=== PATIENT | female | born 1985 | race Caucasian/White ===

== ENCOUNTER 2018-10-30 14:49 | Observation (INO) | payer MEDICAID ==
[2018-10-30] MEDS ORDERED: Calcium Carbonate 500 MG Tab.Chew PO PRN (20:45)
[2018-10-30] MEDS ORDERED: Acetaminophen 325 MG Tab PO PRN (21:27)
[2018-10-30] MEDS ORDERED: Ondansetron 4 MG/2 ML SDV IV PRN (21:27)
[2018-10-30] MEDS ORDERED: Sodium Chloride 0.9% 10 ML Syringe FLUSH PRN (21:27)
[2018-10-30] MEDS ORDERED: Lactated Ringers 1,000 ML IV ONE (21:27)
[2018-10-30] MEDS ORDERED: Zolpidem 5 MG Tab PO ONE (21:40)
--- NOTE | 2018-10-30 21:46 | PCM.LDHP ---
L&D History of Present Illness - General Date of Service: 10/30/18 Admit Problem/Dx: Admission Diagnosis/Problem Admission Diagnosis/Problem Source of Information: Patient History Limitations: Reports: No Limitations - History of Present Illness Introduction:: 10/30/18 33 yo at 38.3 weeks comes in today for her routine OB check, BPP, and NST. BPP 8/8, NST reactive. She stareted [place] this afternoon just prior to her check. Pt lives quite a distance and was feeling like she may be in early labor. Pt was checked intitially and found to be 3/60/-2 at 1530. She then walked and did make slight change with some bloody show and was 3.5/60/-2 at her next check. Pt continued to walk and sit on the ball and did again progress at 1830 to 3-4/70/-1 at 1830 with bloody show. Contractions then spaced out some this evening and her cervix has been unchanged. Due to her distance and history of shorter labors we will keep her overnight to monitor for labor. If no dilation change by am she will be discharged home. Membranes remain intact, good movement. Timing/Duration: Reports: minutes: (5-6) Severity: Mild Improves with: Reports: None Worsens with: Reports: None Associated Symptoms: Reports: vaginal discharge (scant bloody show) - Related Data Allergies/Adverse Reactions: Allergies Allergy/AdvReac Type Severity Reaction Status Date / Time No Known Allergies Allergy Verified 10/30/18 17:32 Home Medications: Home Meds Vit 90/Iron Fum/Folic [ Formula] 1 each PO DAILY 07/12/13 [ History] Past Medical History HEENT History: Reports: Impaired Vision [employer] History: Reports: , Spontaneous : 5 Para: 3 LMP (Approximate): Endocrine/Metabolic History: Reports: Diabetes, Gestational - Infectious Disease History Infectious Disease History: Reports: Chicken Pox - Past Surgical History Cardiovascular Surgical History: Reports: None Social & Family History - Family History Family Medical History: Unobtainable HEENT: Reports: Cataract, Glaucoma Other HEENT Family History: grandmother Cardiac: Reports: None OBGYN: Reports: , Recurrent Spontaneous , Other (See Below) Other OBGYN Family History: sister with 2 miscarriages. mother with a stillborn and one that passed at 2 weeks. - Tobacco Use Smoking Status *Q: Never Smoker Second Hand Smoke Exposure: No - Caffeine Use Caffeine Use: Reports: Coffee Other Caffeine Use: occassional - Recreational Drug Use Recreational Drug Use: No H&P Review of Systems - Review of Systems: Review Of Systems: See Below General: Reports: No Symptoms HEENT: Reports: No Symptoms Pulmonary: Reports: No Symptoms Cardiovascular: Reports: No Symptoms Gastrointestinal: Reports: No Symptoms Genitourinary: Reports: No Symptoms Musculoskeletal: Reports: No Symptoms Skin: Reports: No Symptoms Psychiatric: Reports: No Symptoms Neurological: Reports: No Symptoms Hematologic/Lymphatic: Reports: No Symptoms Immunologic: Reports: No Symptoms L&D Exam - Exam Exam: See Below - Vital Signs Vital Signs: Last Vital Signs Temp 36.1 C 10/30/18 20:23 Pulse 82 10/30/18 20:23 Resp 16 10/30/18 20:23 BP 132/86 10/30/18 20:23 Pulse Ox 95 10/30/18 20:23 Weight: 86.183 kg - OB Specific Contraction Duration (sec): 40-70 Contraction Frequency (min): 1-3 Contraction Intensity: Mild to Moderate Movement: Active Heart Tones: Present Heart Tones per Min: 140 Heart Rate (FHR) Variability: Moderate (6-25 bmp) Presentation: Vertex - Díaz Score Díaz Score Cervix Position: Midposition Díaz Score Consistency: Soft Díaz Score Effacement: 51-70% Díaz Score Dilation: 3-4 cm Díaz Score 's Station: -1 ,0 Díaz Score Total: 9 - Exam General: Alert, Oriented HEENT: PERRLA, Mucosa Moist & [place], Normal Nasal Septum, Pupils Equal, Pupils Reactive Neck: Supple, Trachea Midline Lungs: Clear to Auscultation, Normal Respiratory Effort Cardiovascular: Regular Rate, Regular Rhythm GI/Abdominal Exam: Normal Bowel Sounds, Soft, No Distention Rectal Exam: Normal Exam Genitourinary: Normal external exam, Normal bimanual exam Back Exam: Normal Inspection, Full Range of Motion Extremities: Normal Inspection, Normal Range of Motion, Non-Tender, No Pedal Edema, Normal Capillary Refill Skin: Warm, Dry, Intact Neurological: Cranial Nerves Intact, Reflexes Equal Bilateral Psychiatric: Alert, Normal Affect, Normal Mood - Patient Data Lab Results Last 24 hrs: Laboratory Results - last 24 hr 10/30/18 10/30/18 10/30/18 Range/Units 17:24 17:30 17:34 WBC 10.9 (4.5-11.0) K/uL RBC 4.18 (3.30-5.50) M/uL Hgb 12.1 (12.0-15.0) g/dL Hct 36.2 (36.0-48.0) % MCV 87 (80-98) fL MCH 29 (27-31) pg MCHC 33 (32-36) % Plt Count 255 (150-400) K/uL Neut % (Auto) 68 H (36-66) % Lymph % (Auto) 18 L (24-44) % [place] % (Auto) 11 H (2-6) % Eos % (Auto) 3 (2-4) % Baso % (Auto) 0 (0-1) % Urine Color Yellow (YELLOW) Urine Appearance Clear (CLEAR) Urine pH 5.5 (5.0-8.0) Ur Specific [place] 1.015 (1.008-1.030) Urine Protein Negative (NEGATIVE) mg/dL Urine Glucose (UA) Normal (NEGATIVE) mg/dL Urine Ketones Negative (NEGATIVE) mg/dL Urine Occult Blood Trace (NEGATIVE) Urine Nitrite Negative (NEGATIVE) Urine Bilirubin Negative (NEGATIVE) Urine Urobilinogen Normal (0.2-1.0) EU/dL Ur Leukocyte Esterase Negative (NEGATIVE) Urine RBC 0-5 (0-5) Urine WBC 0-5 (0-5) Ur Epithelial Cells Few Amorphous Sediment Not seen Urine Bacteria Few Urine Mucus Not seen Urine Opiates Screen Negative (NEGATIVE) Ur Oxycodone Screen Negative (NEGATIVE) Urine Methadone Screen Negative (NEGATIVE) Ur Propoxyphene Screen Negative (NEGATIVE) Ur Barbiturates Screen Negative (NEGATIVE) Ur Tricyclics Screen Negative (NEGATIVE) Ur Phencyclidine Scrn Negative (NEGATIVE) Ur Amphetamine Screen Negative (NEGATIVE) U Methamphetamines Scrn Negative (NEGATIVE) Urine MDMA Screen Negative (NEGATIVE) U Benzodiazepines Scrn Negative (NEGATIVE) U Cocaine Metab Screen Negative (NEGATIVE) U Marijuana (THC) Screen Negative (NEGATIVE) Result Diagrams: 10/30/18 17:30 - Problem List (1) 38 weeks gestation of SNOMED Code(s): 60654292 ICD Code: Z3A.38 - 38 WEEKS GESTATION OF Status: Acute Current Visit: Yes (2) GDM (gestational diabetes mellitus) SNOMED Code(s): 77941658 ICD Code: O24.419 - GESTATIONAL DIABETES MELLITUS IN , UNSP CONTROL Status: Acute Current Visit: No Qualifiers: Gestational diabetes mellitus control: diet-controlled Trimester: third trimester Qualified Code(s): O24.410 - Gestational diabetes mellitus in , diet controlled Problem List Initiated/Reviewed/Updated: Yes Orders Last 24hrs: Active Orders 24 hr Category Date Time Status OB Check [OM.PC] Click to Edit Care 10/30/18 17:24 Ordered Calcium Carbonate [Tums] Med 10/30/18 20:45 Active 1,000 mg PO Q2H PRN Medication Orders Calcium Carbonate/Glycine (Tums) 1,000 mg PO Q2H PRN PRN Reason: Indigestion Assessment/Plan Comment:: 10/30/18 33 yo at 38.3 weeks here with latent labor symptoms Membranes intact FHT's category 1 Plan: LR 1 L fluid bolus Intermittent monitoring only overnight Ambien for sleep Reassess labor status in am or sooner if needed
[2018-10-30 23:21] VITALS: BP 105/64
--- NOTE | 2018-10-31 07:43 | PCM.PNLD ---
Labor Progress Note - VS & Meds Vital Signs: Last Vital Signs Temp 36.1 C 10/30/18 20:23 Pulse 78 10/30/18 23:17 Resp 16 10/30/18 23:17 BP 105/64 10/30/18 23:17 Pulse Ox 98 10/30/18 23:17 Active Medications: Current Medications Acetaminophen (Tylenol) 650 mg PO Q4H PRN PRN Reason: Pain (Mild 1-3) and fever Calcium Carbonate/Glycine (Tums) 1,000 mg PO Q2H PRN PRN Reason: Indigestion Last Admin: 10/30/18 23:08 Dose: 1,000 mg Ondansetron HCl (Zofran) 4 mg IV Q4H PRN PRN Reason: Nausea/Vomiting Sodium Chloride (Saline Flush) 10 ml FLUSH ASDIRECTED PRN PRN Reason: Keep Vein Open Discontinued Medications Lactated Ringer's (Ringers, Lactated) 1,000 mls @ 999 mls/hr IV .BOLUS ONE Stop: 10/30/18 22:27 Last Admin: 10/30/18 23:08 Dose: 999 mls/hr Zolpidem Tartrate (Ambien) 10 mg PO ONETIME ONE Stop: 10/30/18 21:41 Last Admin: 10/30/18 23:09 Dose: 10 mg - Uterine Contractions Uterine Monitoring Mode: External [place] Contraction Frequency (min): 1-3 Contraction Duration (sec): 40-70 Contraction Intensity: Mild to Moderate Uterine Resting Tone: Soft - Monitoring Heart Rate (FHR) Variability: Moderate (6-25 bmp) - Vaginal Exam Vaginal Exam Comment: No change - Labor Progress (Free Text) Labor Progress: 10/31/2018 Patient has rested most of night with irregular contractions FHTs category one No change in SVE Decision made to send her home Education on labor signs, when to come back to hospital, due to distance will call ahead when on their way
== END 2018-10-31 09:00 | disposition home or self-care (01) ==
LOC: JP.OBCHECK 14:49 → JP.OB 14:50 → UNDOADMOB 19:40 → INTOOBSV 21:27 → OBSVTOIN 21:27 → JP.OBCHECK 10-31 08:30 → UNDODISIN 10-31 08:30
PROVIDERS: ADMIT Advanced Practice Midwife; ATTEND Advanced Practice Midwife
DX: O60.03 Preterm labor without delivery, third trimester (principal); O24.410 Gestational diabetes mellitus in pregnancy, diet controlled; Z3A.38 38 weeks gestation of pregnancy; Z87.59 Personal history of other complications of pregnancy, childbirth and the puerperium
CPT/HCPCS: 36415; 80305; 81001; 85025; 99211; A9270; J7120

== ENCOUNTER 2018-11-03 11:21 | Inpatient (IN) | payer MEDICAID ==
[2018-11-03] MEDS ORDERED: Sodium Chloride 0.9% 10 ML Syringe FLUSH PRN (11:50)
[2018-11-03] MEDS ORDERED: Ondansetron 4 MG/2 ML SDV IV PRN (11:50)
[2018-11-03] MEDS ORDERED: Calcium Carbonate 500 MG Tab.Chew PO PRN (11:50)
[2018-11-03] MEDS ORDERED: Acetaminophen 325 MG Tab PO PRN (11:50)
--- NOTE | 2018-11-03 12:02 | PCM.LDHP ---
L&D History of Present Illness - General Date of Service: 11/03/18 Admit Problem/Dx: Patient Status Order with Admit Dx/Problem 11/03/18 11:50 Patient Status [ADT] Routine Admission Diagnosis/Problem Admission Diagnosis/Problem Source of Information: Patient History Limitations: Reports: No Limitations - History of Present Illness Introduction:: 33 yo is here with contractions that began at about 4:40 am. She has been [place] on and off since 10/30. Her SVE is 4/60/-1, membranes intact. She is 39 0/7 weeks today and has a history of GDM. She also has a hx of PPH and retained placenta that required a D & C which we will have [address] for. Contractions irregular at this time but her cervix has changed. She desires augmentation today if no cervical change in the next 1-2 hours. Location, : Reports: Abdomen Severity: Moderate Improves with: Reports: None Worsens with: Reports: None Associated Symptoms: Denies: vaginal bleeding, vaginal fluid - Related Data Allergies/Adverse Reactions: Allergies Allergy/AdvReac Type Severity Reaction Status Date / Time No Known Allergies Allergy Verified 10/30/18 17:32 Home Medications: Home Meds Vit 90/Iron Fum/Folic [ Formula] 1 each PO DAILY 07/12/13 [ History] Past Medical History HEENT History: Reports: Impaired Vision [employer] History: Reports: , Spontaneous , Other (See Below) ( PPH and retained placenta) Endocrine/Metabolic History: Reports: Diabetes, Gestational - Infectious Disease History Infectious Disease History: Reports: Chicken Pox - Past Surgical History Cardiovascular Surgical History: Reports: None Social & Family History - Family History Family Medical History: Unobtainable HEENT: Reports: Cataract, Glaucoma Other HEENT Family History: grandmother Cardiac: Reports: None OBGYN: Reports: , Recurrent Spontaneous , Other (See Below) Other OBGYN Family History: sister with 2 miscarriages. mother with a stillborn and one that passed at 2 weeks. - Caffeine Use Caffeine Use: Reports: Coffee Other Caffeine Use: occassional H&P Review of Systems - Review of Systems: Review Of Systems: See Below General: Reports: No Symptoms HEENT: Reports: No Symptoms Pulmonary: Reports: No Symptoms Cardiovascular: Reports: No Symptoms Gastrointestinal: Reports: No Symptoms Genitourinary: Reports: No Symptoms Musculoskeletal: Reports: No Symptoms Skin: Reports: No Symptoms Psychiatric: Reports: No Symptoms Neurological: Reports: No Symptoms Hematologic/Lymphatic: Reports: No Symptoms Immunologic: Reports: No Symptoms L&D Exam - Exam Exam: See Below - OB Specific Contraction Intensity: Mild to Moderate Movement: Active Heart Tones: Present Heart Rate (FHR) Variability: Moderate (6-25 bmp) Presentation: Vertex Estimated Weight: 8 lb 8 oz - Díaz Score Díaz Score Cervix Position: Midposition Díaz Score Consistency: Soft Díaz Score Effacement: 51-70% Díaz Score Dilation: 3-4 cm Díaz Score 's Station: -1 ,0 Díaz Score Total: 9 - Exam General: Alert, Oriented HEENT: PERRLA, EACs Clear, EOMI, Hearing Intact, Mucosa Moist & [place], Nares Patent, Normal Nasal Septum, Pupils Equal, Pupils Reactive Neck: Supple, Trachea Midline Lungs: Clear to Auscultation, Normal Respiratory Effort Cardiovascular: Regular Rate, Regular Rhythm GI/Abdominal Exam: Normal Bowel Sounds, Soft, Non-Tender, No Organomegaly, No Distention, No Abnormal Bruit, No Mass, Pelvis Stable Rectal Exam: Normal Exam, Normal Rectal Tone Genitourinary: Normal external exam, Normal bimanual exam, Enlarged uterus. No : Vaginal bleeding, Vaginal discharge Back Exam: Normal Inspection, Full Range of Motion Extremities: Normal Inspection, Normal Range of Motion, Non-Tender, No Pedal Edema, Normal Capillary Refill. No: Pedal Edema Skin: Warm, Dry, Intact Neurological: Cranial Nerves Intact, Reflexes Equal Bilateral Psychiatric: Alert, Normal Affect, Normal Mood - Problem List (1) SNOMED Code(s): 84192055 ICD Code: Z34.90 - ENCNTR FOR SUPRVSN OF NORMAL , UNSP, UNSP TRIMESTER Status: Acute Current Visit: Yes Qualifiers: Weeks of gestation: 39 weeks Qualified Code(s): Z3A.39 - 39 weeks gestation of (2) History of hemorrhage SNOMED Code(s): 289560640 ICD Code: Z86.2 - PRSNL HISTORY OF DIS OF THE BLD/BLD-FORM ORG/IMMUN MECHNSM Status: Acute Current Visit: Yes (3) History of shoulder dystocia in prior SNOMED Code(s): 335365528 ICD Code: Z87.59 - PERSONAL HISTORY OF COMP OF PREG, CHLDBRTH AND THE PUERP Status: Acute Current Visit: Yes (4) History of retained placenta SNOMED Code(s): 384540018 ICD Code: Z87.59 - PERSONAL HISTORY OF COMP OF PREG, CHLDBRTH AND THE PUERP Status: Acute Current Visit: Yes (5) GDM (gestational diabetes mellitus) SNOMED Code(s): 82374111 ICD Code: O24.419 - GESTATIONAL DIABETES MELLITUS IN , UNSP CONTROL Status: Acute Current Visit: No Qualifiers: Gestational diabetes mellitus control: diet-controlled Trimester: third trimester Qualified Code(s): O24.410 - Gestational diabetes mellitus in , diet controlled (6) Need for rhogam due to Rh negative mother SNOMED Code(s): 960759178, 652401239 ICD Code: O09.899 - SUPERVISION OF OTHER HIGH RISK PREGNANCIES, UNSP TRIMESTER Status: Acute Current Visit: No Problem List Initiated/Reviewed/Updated: Yes Orders Last 24hrs: Active Orders 24 hr Category Date Time Status Patient Status [ADT] Routine ADT 11/03/18 11:50 Ordered Ambulate [RC] PER UNIT ROUTINE Care 11/03/18 11:50 Ordered Communication Order [RC] ASDIRECTED Care 11/03/18 11:50 Ordered Heart Tones [RC] PER UNIT ROUTINE Care 11/03/18 11:50 Ordered Notify Provider Vital Signs [RC] PRN Care 11/03/18 11:52 Ordered Notify Provider [RC] PRN Care 11/03/18 11:50 Ordered OB Check [OM.PC] Click to Edit Care 11/03/18 11:33 Ordered Up ad [place] [RC] ASDIRECTED Care 11/03/18 11:50 Ordered VTE/DVT Education [RC] Click to Edit Care 11/03/18 11:53 Ordered Vital Signs [RC] PER UNIT ROUTINE Care 11/03/18 11:50 Ordered Regular Diet [DIET] Diet 11/03/18 Breakfast Ordered CBC WITH AUTO DIFF [HEME] Routine Lab 11/03/18 11:50 Ordered DRUG SCREEN, URINE [URCHEM] Routine Lab 11/03/18 11:33 Ordered UA W/MICROSCOPIC [URIN] Routine Lab 11/03/18 11:32 Ordered Acetaminophen [Tylenol] Med 11/03/18 11:50 Ordered 650 mg PO Q4H PRN Calcium Carbonate [Tums] Med 11/03/18 11:50 Ordered 1,000 mg PO Q2HR PRN Ondansetron [Zofran] Med 11/03/18 11:50 Ordered 4 mg IV Q4H PRN Oxytocin/Normal Saline [Pitocin in NS 20 Units/1,000 ML Med 11/03/18 12:00 Ordered ] 20 unit in 1,000 ml IV TITRATE Sodium Chloride 0.9% [Saline Flush] Med 11/03/18 11:50 Ordered 10 ml FLUSH ASDIRECTED PRN DVT/VTE Prophylaxis Reflex [OM.PC] Routine Oth 11/03/18 11:50 Ordered Saline Lock Insert [OM.PC] Routine Oth 11/03/18 11:50 Ordered Resuscitation Status Routine Resus Stat 11/03/18 11:50 Ordered Medication Orders Acetaminophen (Tylenol) 650 mg PO Q4H PRN PRN Reason: Pain (Mild 1-3) and fever Calcium Carbonate/Glycine (Tums) 1,000 mg PO Q2HR PRN PRN Reason: Indigestion Oxytocin/Sodium Chloride (Pitocin In Ns 20 Units/1,000 Ml) 20 unit in 1,000 mls @ 6 mls/hr IV TITRATE ELIZABET; Protocol Ondansetron HCl (Zofran) 4 mg IV Q4H PRN PRN Reason: Nausea/Vomiting Sodium Chloride (Saline Flush) 10 ml FLUSH ASDIRECTED PRN PRN Reason: Keep Vein Open Assessment/Plan Comment:: 11/03/18 Assessment: 33 yo here at 39 0/7 weeks in latent labor Membranes intact History of shoulder dystocia, PPH, and retained placenta Category 1 tracing Educated on monitoring latent labor and possible discharge to home if no change vs augmentation, pt desires augmentation Plan: Augment with Pitocin if no cervical change in 1-2 hours Anticipate Continue to monitor for labor and FHT's Pain management per patient request Light regular diet
[2018-11-03] MEDS: Lactated Ringers 1,000 ML IV SCH ×2 (13:30→16:39)
--- NOTE | 2018-11-03 13:31 | PCM.PNLD ---
Labor Progress Note - VS & Meds Active Medications: Current Medications Acetaminophen (Tylenol) 650 mg PO Q4H PRN PRN Reason: Pain (Mild 1-3) and fever Calcium Carbonate/Glycine (Tums) 1,000 mg PO Q2H PRN PRN Reason: Indigestion Oxytocin/Sodium Chloride (Pitocin In Ns 20 Units/1,000 Ml) 20 unit in 1,000 mls @ 6 mls/hr IV TITRATE ELIZABET; Protocol Oxytocin/Sodium Chloride (Pitocin In Ns 20 Units/1,000 Ml) 20 unit in 1,000 mls @ 6 mls/hr IV TITRATE ELIZABET; Protocol Lactated Ringer's (Ringers, Lactated) 1,000 mls @ 125 mls/hr IV ASDIRECTED ELIZABET Ondansetron HCl (Zofran) 4 mg IV Q4H PRN PRN Reason: Nausea/Vomiting Sodium Chloride (Saline Flush) 10 ml FLUSH ASDIRECTED PRN PRN Reason: Keep Vein Open - Uterine Contractions Contraction Intensity: Mild to Moderate - Monitoring Heart Rate (FHR) Variability: Moderate (6-25 bmp) Accelerations: Present, 15x15 Decelerations: None Strip Review: Category I - Vaginal Exam Dilation (cm): 4 Effacement (Percent): 60 Station: -1 Sterile Vaginal Exam Performed By: Meenakshi Webb - Labor Progress (Free Text) Labor Progress: 11/03/18 Assessment: No cervical change, contractions spaced out, not any stronger Category 1 tracing Membranes intact Plan: Start pitocin per protocol Continuous monitoring with pitocin Discussed AROM after 5-6 cm and head well applied, patient desires this unless she has SROM, risk and benefit discussed including prolapsed cord, infection.
--- NOTE | 2018-11-03 17:32 | CRLUS ---
INDICATION: TACHYCARDIA TECHNIQUE: Ultrasound OB pelvis transabdominal. Real time sánchez scale imaging of the fetus was performed. COMPARISON: None FINDINGS: Sonographic imaging demonstrates a single living intrauterine gestation. Fetus demonstrates a regular cardiac rate of 140-152 bpm. Fetus has a cephalic presentation. The placenta is not demonstrated. Amniotic fluid volume appears normal with single deepest pocket (SDP) of 6 cm. breathing movements, motion, and tone were all observed. IMPRESSION: 1. Single viable intrauterine with a biophysical profile 8 out of a maximum of 8. Dictated by: Maurice Cook MD @ 11/03/2018 17:30:37 (Electronically Signed)
--- NOTE | 2018-11-03 17:40 | PCM.PNLD ---
Labor Progress Note - VS & Meds Vital Signs: Last Vital Signs Temp 36.8 C 11/03/18 15:44 Pulse 97 11/03/18 13:40 Resp 18 11/03/18 13:40 BP 128/67 11/03/18 13:40 Pulse Ox 97 11/03/18 13:40 Active Medications: Current Medications Acetaminophen (Tylenol) 650 mg PO Q4H PRN PRN Reason: Pain (Mild 1-3) and fever Calcium Carbonate/Glycine (Tums) 1,000 mg PO Q2H PRN PRN Reason: Indigestion Oxytocin/Sodium Chloride (Pitocin In Ns 20 Units/1,000 Ml) 20 unit in 1,000 mls @ 6 mls/hr IV TITRATE ELIZABET; Protocol Last Titration: 11/03/18 15:55 Dose: 0 munits/min, 0 mls/hr Oxytocin/Sodium Chloride (Pitocin In Ns 20 Units/1,000 Ml) 20 unit in 1,000 mls @ 6 mls/hr IV TITRATE ELIZABET; Protocol Lactated Ringer's (Ringers, Lactated) 1,000 mls @ 125 mls/hr IV ASDIRECTED ELIZABET Last Admin: 11/03/18 16:39 Dose: 125 mls/hr Ondansetron HCl (Zofran) 4 mg IV Q4H PRN PRN Reason: Nausea/Vomiting Sodium Chloride (Saline Flush) 10 ml FLUSH ASDIRECTED PRN PRN Reason: Keep Vein Open - Uterine Contractions Uterine Monitoring Mode: External [address] Contraction Frequency (min): 3-7 Contraction Duration (sec): 60-70 Contraction Intensity: Moderate Uterine Resting Tone: Soft - Monitoring Heart Rate (FHR) Variability: Moderate (6-25 bmp) Accelerations: Present, 15x15 Decelerations: None Strip Review: Category I - Vaginal Exam Dilation (cm): 6 Effacement (Percent): 80 Station: -2 Sterile Vaginal Exam Performed By: Meenakshi Webb - Labor Progress (Free Text) Labor Progress: 11/03/18 Sudden bradycardia noted around 1540 this afternoon that lasted around 30 min. Pt afebrile, rotated side to side, oxygen applied, fluid bolus given, and pitocin shut off. BPP done to verify HR, score was 8/8. heart rate did come back down to baseline and the decision was made to rupture pt to help labor progress. AROM done with clear fluid. FHT now category 1 again. Contractions spaced out and less strong. Plan: Start pitocin again around 1800 slowly and monitor closely. Anticipate .
[2018-11-03] MEDS ORDERED: Lidocaine 1% 20 ML MDV INJECT ONE (21:34)
[2018-11-03] MEDS ORDERED: Lidocaine 1% 50 ML MDV ONE (21:34)
[2018-11-03] MEDS ORDERED: Methylergonovine 0.2 MG/1 ML Amp ONE (21:36)
[2018-11-03] MEDS ORDERED: Misoprostol 200 MCG Tab ONE (21:36)
[2018-11-03] MEDS ORDERED: Carboprost Tromethamine 250 MCG/1 ML Amp ONE (21:36)
[2018-11-03] MEDS ORDERED: Acetaminophen 325 MG Tab, 50 Tab Bulk Bottle PO PRN (21:55)
[2018-11-03] MEDS ORDERED: Benzocaine 20% Top Spray 56 GM Bottle TOP ONE (21:55)
[2018-11-03] MEDS ORDERED: Ibuprofen 200 MG Tab, 24 Tab Bulk Bottle PO PRN (21:55)
[2018-11-03] MEDS ORDERED: Witch Hazel Medicated Pads 100/Jar TOP ONE (21:55)
[2018-11-03] MEDS ORDERED: Lanolin 100% Cream 40 GM Tube TOP ONE (21:55)
--- NOTE | 2018-11-03 22:20 | PCM.DEL ---
L & D Note - General Info Date of Service: 11/03/18 Mother's Due Date: 11/10/18 - Delivery Note Labor: Spontaneous, Augmented by ARM, Augmented by Oxytocin Delivery Outcome: Livebirth Delivery Method: Spontaneous Vaginal Delivery-Single Infant Delivery Mode: Spontaneous Presentation: Right Occiput Anterior (AMILCAR) Nuchal Cord: None Anesthesia Type: None Anesthetic: Lidocaine (Xylocaine) 1% Plain Local Anesthetic Volume: 5cc Amniotic Fluid Description: Clear Episiotomy Type: None Laceration: 1st Degree, Perineal Suture type: Vicryl Suture size: 3-0 Placenta: Intact, Spontaneous Cord: 3 Vessels Estimated Blood Loss: 350 Resuscitation Needed: No Mather: Bulb Syringe, Stimulated, Warmed Provider: Vidhya Eagle Score 1 min: 7 Score 5 min: 8 Second Stage Interventions: Reports: Second Nurse Assessed Progress of Descent, Second Nurse Reviewed Contraction Pattern, Second Nurse Reviewed Heart Tones, Encouragement Given, Pushing Effectively, Pushing, McRobert's Position, Pushing, Stirrups/Leg Supports Delivery Comments (Free Text/Narrative):: 11/03/18 33 yo delivered a male vaginally in AMILCAR position at 2125 after a spontaneous labor that was augmented with pitocin and AROM. Fluid clear. Infant was placed immediately on mothers chest and was stimulated. Cord clamping delayed and then baby was taken to the warmer at 5 min for brief stimulation and then returned to mother 1 min later. Placenta was delivered intact with a 3 vessel cord spontaneously. Fundus firm with IV pitocin and uterine massage. EBL 350 ml. There was a 1st degree perineal laceration that was repaired with 3-0 vicryl. No cervical or vaginal lacerations. Apgars 7, 8. 9 lb 11 oz, 21 in. - General Info Date of Service: 11/03/18 Functional Status: Reports: Pain Controlled - Review of Systems General: Reports: No Symptoms HEENT: Reports: No Symptoms Pulmonary: Reports: No Symptoms Cardiovascular: Reports: No Symptoms Gastrointestinal: Reports: No Symptoms Genitourinary: Reports: No Symptoms Musculoskeletal: Reports: No Symptoms Skin: Reports: No Symptoms Neurological: Reports: No Symptoms Psychiatric: Reports: No Symptoms - Patient Data Vitals - Most Recent: Last Vital Signs Temp 37.2 C 11/03/18 19:30 Pulse 84 11/03/18 19:30 Resp 16 08/20/19 19:30 BP 140/68 11/03/18 19:30 Pulse Ox 98 11/03/18 19:30 Weight - Most Recent: 86.636 kg Lab Results Last 24 Hours: Laboratory Results - last 24 hr 11/03/18 11/03/18 11/03/18 Range/Units 11:32 11:33 12:01 WBC 9.2 (4.5-11.0) K/uL RBC 4.25 (3.30-5.50) M/uL Hgb 12.3 (12.0-15.0) g/dL Hct 36.7 (36.0-48.0) % MCV 86 (80-98) fL MCH 29 (27-31) pg MCHC 34 (32-36) % Plt Count 254 (150-400) K/uL Neut % (Auto) 70 H (36-66) % Lymph % (Auto) 18 L (24-44) % [place] % (Auto) 10 H (2-6) % Eos % (Auto) 3 (2-4) % Baso % (Auto) 1 (0-1) % Urine Color Yellow (YELLOW) Urine Appearance Clear (CLEAR) Urine pH 6.0 (5.0-8.0) Ur Specific [place] 1.020 (1.008-1.030) Urine Protein Negative (NEGATIVE) mg/dL Urine Glucose (UA) Normal (NEGATIVE) mg/dL Urine Ketones Negative (NEGATIVE) mg/dL Urine Occult Blood Negative (NEGATIVE) Urine Nitrite Negative (NEGATIVE) Urine Bilirubin Negative (NEGATIVE) Urine Urobilinogen Normal (0.2-1.0) EU/dL Ur Leukocyte Esterase Negative (NEGATIVE) Urine RBC Not seen (0-5) Urine WBC 0-5 (0-5) Ur Epithelial Cells Moderate Amorphous Sediment Few Urine Bacteria Few Urine Mucus Not seen Urine Opiates Screen Negative (NEGATIVE) Ur Oxycodone Screen Negative (NEGATIVE) Urine Methadone Screen Negative (NEGATIVE) Ur Propoxyphene Screen Negative (NEGATIVE) Ur Barbiturates Screen Negative (NEGATIVE) Ur Tricyclics Screen Negative (NEGATIVE) Ur Phencyclidine Scrn Negative (NEGATIVE) Ur Amphetamine Screen Negative (NEGATIVE) U Methamphetamines Scrn Negative (NEGATIVE) Urine MDMA Screen Negative (NEGATIVE) U Benzodiazepines Scrn Negative (NEGATIVE) U Cocaine Metab Screen Negative (NEGATIVE) U Marijuana (THC) Screen Negative (NEGATIVE) Med Orders - Current: Current Medications Acetaminophen (Tylenol) 650 mg PO Q4H PRN PRN Reason: Pain (Mild 1-3) and fever Acetaminophen (Tylenol Bulk Bottle) 325 mg PO Q4H PRN PRN Reason: Pain Benzocaine (Bcbw-Z-Brystft 20% [place]) 0 gm TOP Q4H ONE Stop: 11/03/18 21:56 Calcium Carbonate/Glycine (Tums) 1,000 mg PO Q2H PRN PRN Reason: Indigestion Docusate Sodium (Colace) 100 mg PO BID PRN PRN Reason: Constipation Emollient Ointment (Lansinoh Hpa) 1 gm TOP ASDIRECTED ONE Stop: 11/03/18 21:56 Oxytocin/Sodium Chloride (Pitocin In Ns 20 Units/1,000 Ml) 20 unit in 1,000 mls @ 6 mls/hr IV TITRATE ELIZABET; Protocol Last Titration: 11/03/18 20:03 Dose: 4 munits/min, 12 mls/hr Oxytocin/Sodium Chloride (Pitocin In Ns 20 Units/1,000 Ml) 20 unit in 1,000 mls @ 6 mls/hr IV TITRATE ELIZABET; Protocol Lactated Ringer's (Ringers, Lactated) 1,000 mls @ 125 mls/hr IV ASDIRECTED ELIZABET Last Admin: 11/03/18 16:39 Dose: 125 mls/hr Ibuprofen (Motrin Bulk Bottle) 600 mg PO Q6H PRN PRN Reason: Pain Ondansetron HCl (Zofran) 4 mg IV Q4H PRN PRN Reason: Nausea/Vomiting Sodium Chloride (Saline Flush) 10 ml FLUSH ASDIRECTED PRN PRN Reason: Keep Vein Open Witch Ame (Tucks) 1 pad TOP ASDIRECTED ONE Stop: 11/03/18 21:56 Discontinued Medications Carboprost Tromethamine (Hemabate Ds) Confirm Administered Dose 250 mcg .ROUTE .STK-MED ONE Stop: 11/03/18 21:37 Lidocaine HCl (Xylocaine 1%) Confirm Administered Dose 50 ml .ROUTE .STK-MED ONE Stop: 11/03/18 21:35 Methylergonovine Maleate (Methergine) Confirm Administered Dose 0.2 mg .ROUTE .STK-MED ONE Stop: 11/03/18 21:37 Misoprostol (Cytotec) Confirm Administered Dose 800 mcg .ROUTE .STK-MED ONE Stop: 11/03/18 21:37 - Exam General: Alert, Oriented HEENT: Pupils Equal, Pupils Reactive, Mucous Membr. Moist/[place] Neck: Supple Lungs: Clear to Auscultation, Normal Respiratory Effort Cardiovascular: Regular Rate, Regular Rhythm GI/Abdominal Exam: Normal Bowel Sounds, Soft, Non-Tender, No Distention, No Mass (Female) Exam: Normal External Exam, Normal Bimanual Exam, Cervical Dilatation, Enlarged Uterus, Vaginal Bleeding. No: Vaginal Lesions, Vaginal Tears Back Exam: Normal Inspection, Full Range of Motion Extremities: Normal Inspection, Normal Range of Motion, Non-Tender, No Pedal Edema, Normal Capillary Refill Skin: Warm, Dry, Intact Wound/Incisions: Healing Well Neurological: No New Focal Deficit Psy/Mental Status: Alert, Normal Affect, Normal Mood - Problem List & Annotations (1) SNOMED Code(s): 92814821 Code(s): Z34.90 - ENCNTR FOR SUPRVSN OF NORMAL , UNSP, UNSP TRIMESTER Status: Acute Current Visit: Yes Qualifiers: Weeks of gestation: 39 weeks Qualified Code(s): Z3A.39 - 39 weeks gestation of (2) History of hemorrhage SNOMED Code(s): 708114376 Code(s): Z86.2 - PRSNL HISTORY OF DIS OF THE BLD/BLD-FORM ORG/IMMUN MECHNSM Status: Acute Current Visit: Yes (3) History of shoulder dystocia in prior SNOMED Code(s): 487296550 Code(s): Z87.59 - PERSONAL HISTORY OF COMP OF PREG, CHLDBRTH AND THE PUERP Status: Acute Current Visit: Yes (4) History of retained placenta SNOMED Code(s): 840939348 Code(s): Z87.59 - PERSONAL HISTORY OF COMP OF PREG, CHLDBRTH AND THE PUERP Status: Acute Current Visit: Yes (5) GDM (gestational diabetes mellitus) SNOMED Code(s): 41977307 Code(s): O24.419 - GESTATIONAL DIABETES MELLITUS IN , UNSP CONTROL Status: Acute Current Visit: No Qualifiers: Gestational diabetes mellitus control: diet-controlled Trimester: third trimester Qualified Code(s): O24.410 - Gestational diabetes mellitus in , diet controlled (6) Need for rhogam due to Rh negative mother SNOMED Code(s): 183547872, 376668942 Code(s): O09.899 - SUPERVISION OF OTHER HIGH RISK PREGNANCIES, UNSP TRIMESTER Status: Acute Current Visit: No (7) Vaginal delivery SNOMED Code(s): 441189388 Code(s): O80 - ENCOUNTER FOR FULL-TERM UNCOMPLICATED DELIVERY Status: Acute Current Visit: Yes (8) (infant) SNOMED Code(s): 677587012 Code(s): Z78.9 - OTHER SPECIFIED HEALTH STATUS Status: Acute Current Visit: Yes (9) Perineal laceration SNOMED Code(s): 373700974 Code(s): MSI6374 - Status: Acute Current Visit: Yes - Problem List Review Problem List Initiated/Reviewed/Updated: Yes - My Orders Last 24 Hours: My Active Orders 11/03/18 11:33 OB Check [OM.PC] Click to Edit 11/03/18 11:50 Patient Status [ADT] Routine Ambulate [RC] PER UNIT ROUTINE Communication Order [RC] ASDIRECTED Notify Provider [RC] PRN Up ad [place]ala [RC] ASDIRECTED Vital Signs [RC] PER UNIT ROUTINE Acetaminophen [Tylenol] 650 mg PO Q4H PRN Calcium Carbonate [Tums] 1,000 mg PO Q2H PRN Ondansetron [Zofran] 4 mg IV Q4H PRN Sodium Chloride 0.9% [Saline Flush] 10 ml FLUSH ASDIRECTED PRN DVT/VTE Prophylaxis Reflex [OM.PC] Routine Saline Lock Insert [OM.PC] Routine Resuscitation Status Routine 11/03/18 11:52 Notify Provider Vital Signs [RC] PRN 11/03/18 11:53 VTE/DVT Education [RC] Click to Edit 11/03/18 12:00 Oxytocin/Normal Saline [Pitocin in NS 20 Units/1,000 ML] 20 unit in 1,000 ml IV TITRATE 11/03/18 13:30 Lactated Ringers [Ringers, Lactated] 1,000 ml IV ASDIRECTED Oxytocin/Normal Saline [Pitocin in NS 20 Units/1,000 ML] 20 unit in 1,000 ml IV TITRATE 11/03/18 21:55 Acetaminophen [Tylenol Bulk Bottle] 325 mg PO Q4H PRN Benzocaine [Aeul-T-Sotcqhi 20% [place]] See Dose Instructions TOP Q4H ONE Docusate Sodium [Colace] 100 mg PO BID PRN Ibuprofen [Motrin Bulk Bottle] 600 mg PO Q6H PRN Lanolin [Lansinoh HPA] 1 gm TOP ASDIRECTED ONE Witch Ame [Tucks] 1 pad TOP ASDIRECTED ONE Assess Lochia [WOMSER] Per Unit Routine Assess Uterine Involution [WOMSER] Per Unit Routine 11/03/18 21:56 Patient Status [ADT] Routine Vital Signs [RC] PFP Ice Therapy [OM.PC] Per Unit Routine Perineal Care [OM.PC] Per Unit Routine Sitz Bath [OM.PC] Per Unit Routine 11/03/18 21:57 Peripheral IV Discontinue [OM.PC] Routine 11/03/18 Breakfast Regular Diet [DIET] 11/04/18 06:00 CBC WITH AUTO DIFF [HEME] Routine - Assessment Assessment:: 11/03/18 33 yo with of a male Hx GDM First degree laceration with repair mother - Plan Plan:: 11/03/18 Assessment: 33 yo here at 39 0/7 weeks in latent labor Membranes intact History of shoulder dystocia, PPH, and retained placenta Category 1 tracing Educated on monitoring latent labor and possible discharge to home if no change vs augmentation, pt desires augmentation Plan: Augment with Pitocin if no cervical change in 1-2 hours Anticipate Continue to monitor for labor and FHT's Pain management per patient request Light regular diet 11/03/18 Routine cares Encourage and support Good perineal care of 1st degree laceration Estimate 24-48 hour stay
--- NOTE | 2018-11-04 08:33 | PCM.PNPP ---
- General Info Date of Service: 11/04/18 Functional Status: Reports: Pain Controlled - Review of Systems General: Reports: No Symptoms HEENT: Reports: No Symptoms Pulmonary: Reports: No Symptoms Cardiovascular: Reports: No Symptoms Gastrointestinal: Reports: No Symptoms Genitourinary: Reports: No Symptoms Musculoskeletal: Reports: No Symptoms Skin: Reports: No Symptoms Neurological: Reports: No Symptoms Psychiatric: Reports: No Symptoms - General Info Date of Service: 11/04/18 - Patient Data Vital Signs - Most Recent: Last Vital Signs Temp 35.2 C L 11/04/18 07:37 Pulse 67 11/04/18 07:37 Resp 18 11/04/18 07:37 BP 105/67 11/04/18 07:37 Pulse Ox 97 11/04/18 07:37 Weight - Most Recent: 86.636 kg I&O - Last 24 Hours: Intake & Output 11/03/18 11/04/18 11/04/18 22:59 06:59 14:59 Intake Total 800 Balance 800 Lab Results - Last 24 Hours: Laboratory Results - last 24 hr 11/03/18 11/03/18 11/03/18 Range/Units 11:32 11:33 12:01 WBC 9.2 (4.5-11.0) K/uL RBC 4.25 (3.30-5.50) M/uL Hgb 12.3 (12.0-15.0) g/dL Hct 36.7 (36.0-48.0) % MCV 86 (80-98) fL MCH 29 (27-31) pg MCHC 34 (32-36) % Plt Count 254 (150-400) K/uL Neut % (Auto) 70 H (36-66) % Lymph % (Auto) 18 L (24-44) % [place] % (Auto) 10 H (2-6) % Eos % (Auto) 3 (2-4) % Baso % (Auto) 1 (0-1) % Urine Color Yellow (YELLOW) Urine Appearance Clear (CLEAR) Urine pH 6.0 (5.0-8.0) Ur Specific [place] 1.020 (1.008-1.030) Urine Protein Negative (NEGATIVE) mg/dL Urine Glucose (UA) Normal (NEGATIVE) mg/dL Urine Ketones Negative (NEGATIVE) mg/dL Urine Occult Blood Negative (NEGATIVE) Urine Nitrite Negative (NEGATIVE) Urine Bilirubin Negative (NEGATIVE) Urine Urobilinogen Normal (0.2-1.0) EU/dL Ur Leukocyte Esterase Negative (NEGATIVE) Urine RBC Not seen (0-5) Urine WBC 0-5 (0-5) Ur Epithelial Cells Moderate Amorphous Sediment Few Urine Bacteria Few Urine Mucus Not seen Urine Opiates Screen Negative (NEGATIVE) Ur Oxycodone Screen Negative (NEGATIVE) Urine Methadone Screen Negative (NEGATIVE) Ur Propoxyphene Screen Negative (NEGATIVE) Ur Barbiturates Screen Negative (NEGATIVE) Ur Tricyclics Screen Negative (NEGATIVE) Ur Phencyclidine Scrn Negative (NEGATIVE) Ur Amphetamine Screen Negative (NEGATIVE) U Methamphetamines Scrn Negative (NEGATIVE) Urine MDMA Screen Negative (NEGATIVE) U Benzodiazepines Scrn Negative (NEGATIVE) U Cocaine Metab Screen Negative (NEGATIVE) U Marijuana (THC) Screen Negative (NEGATIVE) 11/04/18 Range/Units 05:35 WBC 12.8 H (4.5-11.0) K/uL RBC 3.81 (3.30-5.50) M/uL Hgb 11.0 L (12.0-15.0) g/dL Hct 33.0 L (36.0-48.0) % MCV 87 (80-98) fL MCH 29 (27-31) pg MCHC 33 (32-36) % Plt Count 249 (150-400) K/uL Neut % (Auto) 70 H (36-66) % Lymph % (Auto) 15 L (24-44) % [place] % (Auto) 13 H (2-6) % Eos % (Auto) 1 L (2-4) % Baso % (Auto) 0 (0-1) % Urine Color (YELLOW) Urine Appearance (CLEAR) Urine pH (5.0-8.0) Ur Specific [place] (1.008-1.030) Urine Protein (NEGATIVE) mg/dL Urine Glucose (UA) (NEGATIVE) mg/dL Urine Ketones (NEGATIVE) mg/dL Urine Occult Blood (NEGATIVE) Urine Nitrite (NEGATIVE) Urine Bilirubin (NEGATIVE) Urine Urobilinogen (0.2-1.0) EU/dL Ur Leukocyte Esterase (NEGATIVE) Urine RBC (0-5) Urine WBC (0-5) Ur Epithelial Cells Amorphous Sediment Urine Bacteria Urine Mucus Urine Opiates Screen (NEGATIVE) Ur Oxycodone Screen (NEGATIVE) Urine Methadone Screen (NEGATIVE) Ur Propoxyphene Screen (NEGATIVE) Ur Barbiturates Screen (NEGATIVE) Ur Tricyclics Screen (NEGATIVE) Ur Phencyclidine Scrn (NEGATIVE) Ur Amphetamine Screen (NEGATIVE) U Methamphetamines Scrn (NEGATIVE) Urine MDMA Screen (NEGATIVE) U Benzodiazepines Scrn (NEGATIVE) U Cocaine Metab Screen (NEGATIVE) U Marijuana (THC) Screen (NEGATIVE) Med Orders - Current: Current Medications Acetaminophen (Tylenol Bulk Bottle) 325 - 650 mg PO Q4H PRN PRN Reason: Pain Last Admin: 11/04/18 00:22 Dose: 1 bottle Calcium Carbonate/Glycine (Tums) 1,000 mg PO Q2H PRN PRN Reason: Indigestion Docusate Sodium (Colace) 100 mg PO BID PRN PRN Reason: Constipation Oxytocin/Sodium Chloride (Pitocin In Ns 20 Units/1,000 Ml) 20 unit in 1,000 mls @ 6 mls/hr IV TITRATE EILZABET; Protocol Last Titration: 11/03/18 21:25 Dose: 999 mls/hr Lactated Ringer's (Ringers, Lactated) 1,000 mls @ 125 mls/hr IV ASDIRECTED ELIZABET Last Admin: 11/03/18 16:39 Dose: 125 mls/hr Ibuprofen (Motrin Bulk Bottle) 600 mg PO Q6H PRN PRN Reason: Pain Last Admin: 11/04/18 00:23 Dose: 1 bottle Ondansetron HCl (Zofran) 4 mg IV Q4H PRN PRN Reason: Nausea/Vomiting Sodium Chloride (Saline Flush) 10 ml FLUSH ASDIRECTED PRN PRN Reason: Keep Vein Open Discontinued Medications Acetaminophen (Tylenol) 650 mg PO Q4H PRN PRN Reason: Pain (Mild 1-3) and fever Benzocaine (Lujd-W-Iapoifi 20% [place]) 0 gm TOP Q4H ONE Stop: 11/03/18 21:56 Last Admin: 11/04/18 00:22 Dose: Not Given Carboprost Tromethamine (Hemabate Ds) Confirm Administered Dose 250 mcg .ROUTE .STK-MED ONE Stop: 11/03/18 21:37 Last Admin: 11/03/18 23:54 Dose: Not Given Emollient Ointment (Lansinoh Hpa) 1 gm TOP ASDIRECTED ONE Stop: 11/03/18 21:56 Last Admin: 11/04/18 00:22 Dose: Not Given Oxytocin/Sodium Chloride (Pitocin In Ns 20 Units/1,000 Ml) 20 unit in 1,000 mls @ 6 mls/hr IV TITRATE ELIZABET; Protocol Lidocaine HCl (Xylocaine 1%) Confirm Administered Dose 50 ml .ROUTE .STK-MED ONE Stop: 11/03/18 21:35 Last Admin: 11/03/18 21:30 Dose: 50 ml Lidocaine HCl (Xylocaine 1%) 20 ml INJECT ONETIME ONE Stop: 11/03/18 21:35 Methylergonovine Maleate (Methergine) Confirm Administered Dose 0.2 mg .ROUTE .STK-MED ONE Stop: 11/03/18 21:37 Last Admin: 11/03/18 23:54 Dose: Not Given Misoprostol (Cytotec) Confirm Administered Dose 800 mcg .ROUTE .STK-MED ONE Stop: 11/03/18 21:37 Last Admin: 11/03/18 23:54 Dose: Not Given Witch Ame (Tucks) 1 pad TOP ASDIRECTED ONE Stop: 11/03/18 21:56 Last Admin: 11/04/18 00:22 Dose: Not Given - Interaction Infant Disposition, : [place] in Room with Family Infant Interaction: Holding Infant Feeding: Breastfed Infant; Nursed Well, Difficulty with Latch-on Support Person: - Recovery Exam Fundal Tone: Firm Fundal Level: 1 Fingerbreadths Below Umbilicus Fundal Placement: Midline Lochia Amount: Small Lochia Color: [place]ra/Red Perineum Description: Intact, Minimal Bruising/Swelling Episiotomy/Laceration: Approximated Bladder Status: Voiding Urinary Elimination: Voided - Exam General: Alert, Oriented HEENT: Pupils Equal, Pupils Reactive, Mucous Membr. Moist/[place] Neck: Supple Lungs: Clear to Auscultation, Normal Respiratory Effort Cardiovascular: Regular Rate, Regular Rhythm GI/Abdominal Exam: Normal Bowel Sounds, Soft, Non-Tender, No Distention, No Abnormal Bruit Extremities: Normal Inspection, Normal Range of Motion, Non-Tender, No Pedal Edema, Normal Capillary Refill Skin: Warm, Dry, Intact Neurological: No New Focal Deficit Psy/Mental Status: Alert, Normal Affect, Normal Mood - Problem List & Annotations (1) SNOMED Code(s): 92239633 Code(s): Z34.90 - ENCNTR FOR SUPRVSN OF NORMAL , UNSP, UNSP TRIMESTER Status: Acute Current Visit: Yes Qualifiers: Weeks of gestation: 39 weeks Qualified Code(s): Z3A.39 - 39 weeks gestation of (2) History of hemorrhage SNOMED Code(s): 884410684 Code(s): Z86.2 - PRSNL HISTORY OF DIS OF THE BLD/BLD-FORM ORG/IMMUN MECHNSM Status: Acute Current Visit: Yes (3) History of shoulder dystocia in prior SNOMED Code(s): 916859439 Code(s): Z87.59 - PERSONAL HISTORY OF COMP OF PREG, CHLDBRTH AND THE PUERP Status: Acute Current Visit: Yes (4) History of retained placenta SNOMED Code(s): 705801880 Code(s): Z87.59 - PERSONAL HISTORY OF COMP OF PREG, CHLDBRTH AND THE PUERP Status: Acute Current Visit: Yes (5) GDM (gestational diabetes mellitus) SNOMED Code(s): 48760921 Code(s): O24.419 - GESTATIONAL DIABETES MELLITUS IN , UNSP CONTROL Status: Acute Current Visit: No Qualifiers: Gestational diabetes mellitus control: diet-controlled Trimester: third trimester Qualified Code(s): O24.410 - Gestational diabetes mellitus in , diet controlled (6) Need for rhogam due to Rh negative mother SNOMED Code(s): 344543904, 709316857 Code(s): O09.899 - SUPERVISION OF OTHER HIGH RISK PREGNANCIES, UNSP TRIMESTER Status: Acute Current Visit: No (7) Vaginal delivery SNOMED Code(s): 023492975 Code(s): O80 - ENCOUNTER FOR FULL-TERM UNCOMPLICATED DELIVERY Status: Acute Current Visit: Yes (8) (infant) SNOMED Code(s): 310816421 Code(s): Z78.9 - OTHER SPECIFIED HEALTH STATUS Status: Acute Current Visit: Yes (9) Perineal laceration SNOMED Code(s): 871041469 Code(s): DGM5055 - Status: Acute Current Visit: Yes - Problem List Review Problem List Initiated/Reviewed/Updated: Yes - My Orders Last 24 Hours: My Active Orders 11/03/18 11:33 OB Check [OM.PC] Click to Edit 11/03/18 11:50 Patient Status [ADT] Routine Ambulate [RC] PER UNIT ROUTINE Notify Provider [RC] PRN Up ad [place] [RC] ASDIRECTED Calcium Carbonate [Tums] 1,000 mg PO Q2H PRN Ondansetron [Zofran] 4 mg IV Q4H PRN Sodium Chloride 0.9% [Saline Flush] 10 ml FLUSH ASDIRECTED PRN DVT/VTE Prophylaxis Reflex [OM.PC] Routine Saline Lock Insert [OM.PC] Routine Resuscitation Status Routine 11/03/18 11:52 Notify Provider Vital Signs [RC] PRN 11/03/18 11:53 VTE/DVT Education [RC] Click to Edit 11/03/18 12:00 Oxytocin/Normal Saline [Pitocin in NS 20 Units/1,000 ML] 20 unit in 1,000 ml IV TITRATE 11/03/18 13:30 Lactated Ringers [Ringers, Lactated] 1,000 ml IV ASDIRECTED 11/03/18 21:55 Acetaminophen [Tylenol Bulk Bottle] 325 - 650 mg PO Q4H PRN Docusate Sodium [Colace] 100 mg PO BID PRN Ibuprofen [Motrin Bulk Bottle] 600 mg PO Q6H PRN Assess Lochia [WOMSER] Per Unit Routine Assess Uterine Involution [WOMSER] Per Unit Routine 11/03/18 21:56 Patient Status [ADT] Routine Vital Signs [RC] PFP Ice Therapy [OM.PC] Per Unit Routine Perineal Care [OM.PC] Per Unit Routine Sitz Bath [OM.PC] Per Unit Routine 11/03/18 21:57 Peripheral IV Discontinue [OM.PC] Routine 11/03/18 Breakfast Regular Diet [DIET] - Assessment Assessment:: 11/03/18 33 yo with of a male Hx GDM First degree laceration with repair mother 11/04/18 PP day one patient doing well VSS going well, needs support with left side Hgb 11.0 today FF bleeding scant, no perineal pain, repair healing well Baby O-, no rhogam - Plan Plan:: 11/03/18 Assessment: 33 yo here at 39 0/7 weeks in latent labor Membranes intact History of shoulder dystocia, PPH, and retained placenta Category 1 tracing Educated on monitoring latent labor and possible discharge to home if no change vs augmentation, pt desires augmentation Plan: Augment with Pitocin if no cervical change in 1-2 hours Anticipate Continue to monitor for labor and FHT's Pain management per patient request Light regular diet 11/03/18 Routine cares Encourage and support Good perineal care of 1st degree laceration Estimate 24-48 hour stay 11/04/18 Routine cares consult today Anticipate discharge home tomorrow
[2018-11-04] MEDS: Docusate Sodium 100 MG Cap PO PRN (21:18)
[2018-11-05 08:33] VITALS: BP 128/68
--- NOTE | 2018-11-05 08:41 | PCM.PNPP ---
- General Info Date of Service: 11/05/18 Admission Dx/Problem (Free Text): Patient Status Order with Admit Dx/Problem 11/03/18 11:50 Patient Status [ADT] Routine Admission Diagnosis/Problem Admission Diagnosis/Problem Functional Status: Reports: Pain Controlled - Review of Systems General: Reports: No Symptoms HEENT: Reports: No Symptoms Pulmonary: Reports: No Symptoms Cardiovascular: Reports: No Symptoms Gastrointestinal: Reports: No Symptoms Genitourinary: Reports: No Symptoms Musculoskeletal: Reports: No Symptoms Skin: Reports: No Symptoms Neurological: Reports: No Symptoms Psychiatric: Reports: No Symptoms - Patient Data Vital Signs - Most Recent: Last Vital Signs Temp 96.5 F 11/05/18 08:30 Pulse 67 11/05/18 08:30 Resp 16 11/05/18 08:30 BP 128/68 11/05/18 08:30 Pulse Ox 97 11/05/18 08:30 Weight - Most Recent: 190 lb 15.995 oz I&O - Last 24 Hours: Intake & Output 11/04/18 11/05/18 11/05/18 22:59 06:59 14:59 Intake Total 3000 1500 Balance 3000 1500 Med Orders - Current: Current Medications Acetaminophen (Tylenol Bulk Bottle) 325 - 650 mg PO Q4H PRN PRN Reason: Pain Last Admin: 11/04/18 00:22 Dose: 1 bottle Calcium Carbonate/Glycine (Tums) 1,000 mg PO Q2H PRN PRN Reason: Indigestion Docusate Sodium (Colace) 100 mg PO BID PRN PRN Reason: Constipation Last Admin: 11/04/18 21:18 Dose: 100 mg Oxytocin/Sodium Chloride (Pitocin In Ns 20 Units/1,000 Ml) 20 unit in 1,000 mls @ 6 mls/hr IV TITRATE ELIZABET; Protocol Last Titration: 11/03/18 21:25 Dose: 999 mls/hr Lactated Ringer's (Ringers, Lactated) 1,000 mls @ 125 mls/hr IV ASDIRECTED ELIZABET Last Admin: 11/03/18 16:39 Dose: 125 mls/hr Ibuprofen (Motrin Bulk Bottle) 600 mg PO Q6H PRN PRN Reason: Pain Last Admin: 11/04/18 00:23 Dose: 1 bottle Ondansetron HCl (Zofran) 4 mg IV Q4H PRN PRN Reason: Nausea/Vomiting Sodium Chloride (Saline Flush) 10 ml FLUSH ASDIRECTED PRN PRN Reason: Keep Vein Open Discontinued Medications Acetaminophen (Tylenol) 650 mg PO Q4H PRN PRN Reason: Pain (Mild 1-3) and fever Benzocaine (Ukdz-Y-Omizknt 20% [place]) 0 gm TOP Q4H ONE Stop: 11/03/18 21:56 Last Admin: 11/04/18 00:22 Dose: Not Given Carboprost Tromethamine (Hemabate Ds) Confirm Administered Dose 250 mcg .ROUTE .STK-MED ONE Stop: 11/03/18 21:37 Last Admin: 11/03/18 23:54 Dose: Not Given Emollient Ointment (Lansinoh Hpa) 1 gm TOP ASDIRECTED ONE Stop: 11/03/18 21:56 Last Admin: 11/04/18 00:22 Dose: Not Given Oxytocin/Sodium Chloride (Pitocin In Ns 20 Units/1,000 Ml) 20 unit in 1,000 mls @ 6 mls/hr IV TITRATE ELIZABET; Protocol Lidocaine HCl (Xylocaine 1%) Confirm Administered Dose 50 ml .ROUTE .STK-MED ONE Stop: 11/03/18 21:35 Last Admin: 11/03/18 21:30 Dose: 50 ml Lidocaine HCl (Xylocaine 1%) 20 ml INJECT ONETIME ONE Stop: 11/03/18 21:35 Last Admin: 11/04/18 20:59 Dose: Not Given Methylergonovine Maleate (Methergine) Confirm Administered Dose 0.2 mg .ROUTE .STK-MED ONE Stop: 11/03/18 21:37 Last Admin: 11/03/18 23:54 Dose: Not Given Misoprostol (Cytotec) Confirm Administered Dose 800 mcg .ROUTE .STK-MED ONE Stop: 11/03/18 21:37 Last Admin: 11/03/18 23:54 Dose: Not Given Witch Ame (Tucks) 1 pad TOP ASDIRECTED ONE Stop: 11/03/18 21:56 Last Admin: 11/04/18 00:22 Dose: Not Given - Infant Interaction Disposition, : [place] in Room with Family Interaction: Holding Infant Feeding: Breastfed Infant; Nursed Well, Difficulty with Latch-on Support Person: - Recovery Exam Fundal Tone: Firm Fundal Level: 1 Fingerbreadths Below Umbilicus Fundal Placement: Midline Lochia Amount: Small Lochia Color: Rubra/Red Perineum Description: Intact, Minimal Bruising/Swelling Episiotomy/Laceration: Approximated Bladder Status: Voiding Urinary Elimination: Voided - Exam General: Alert, Oriented HEENT: Pupils Equal Neck: Supple Lungs: Clear to Auscultation, Normal Respiratory Effort Cardiovascular: Regular Rate, Regular Rhythm GI/Abdominal Exam: Normal Bowel Sounds Extremities: Normal Inspection, No Pedal Edema Skin: Warm, Dry Wound/Incisions: Healing Well Neurological: No New Focal Deficit Psy/Mental Status: Alert, Normal Affect - Problem List & Annotations (1) SNOMED Code(s): 57149161 Code(s): Z34.90 - ENCNTR FOR SUPRVSN OF NORMAL , UNSP, UNSP TRIMESTER Status: Acute Current Visit: Yes Qualifiers: Weeks of gestation: 39 weeks Qualified Code(s): Z3A.39 - 39 weeks gestation of (2) History of hemorrhage SNOMED Code(s): 558967151 Code(s): Z86.2 - PRSNL HISTORY OF DIS OF THE BLD/BLD-FORM ORG/IMMUN MECHNSM Status: Acute Current Visit: Yes (3) History of shoulder dystocia in prior SNOMED Code(s): 250132510 Code(s): Z87.59 - PERSONAL HISTORY OF COMP OF PREG, CHLDBRTH AND THE PUERP Status: Acute Current Visit: Yes (4) History of retained placenta SNOMED Code(s): 227124137 Code(s): Z87.59 - PERSONAL HISTORY OF COMP OF PREG, CHLDBRTH AND THE PUERP Status: Acute Current Visit: Yes (5) Vaginal delivery SNOMED Code(s): 950462183 Code(s): O80 - ENCOUNTER FOR FULL-TERM UNCOMPLICATED DELIVERY Status: Acute Current Visit: Yes (6) () SNOMED Code(s): 592316468 Code(s): Z78.9 - OTHER SPECIFIED HEALTH STATUS Status: Acute Current Visit: Yes (7) Perineal laceration SNOMED Code(s): 443787908 Code(s): [id number] - Status: Acute Current Visit: Yes (8) Need for rhogam due to Rh negative mother SNOMED Code(s): 373658382, 098300850 Code(s): O09.899 - SUPERVISION OF OTHER HIGH RISK PREGNANCIES, UNSP TRIMESTER Status: Acute Current Visit: No - Problem List Review Problem List Initiated/Reviewed/Updated: Yes - Assessment Assessment:: 11/03/18 33 yo with of a male infant Hx GDM First degree laceration with repair mother 11/04/18 PP day one patient doing well VSS going well, needs support with left side Hgb 11.0 today FF bleeding scant, no perineal pain, repair healing well Baby O-, no rhogam 11/05/18 PPD 2 discharge Feeling well without problem ready for discharge - Plan Plan:: 11/03/18 Assessment: 33 yo here at 39 0/7 weeks in latent labor Membranes intact History of shoulder dystocia, PPH, and retained placenta Category 1 tracing Educated on monitoring latent labor and possible discharge to home if no change vs augmentation, pt desires augmentation Plan: Augment with Pitocin if no cervical change in 1-2 hours Anticipate Continue to monitor for labor and FHT's Pain management per patient request Light regular diet 11/03/18 Routine cares Encourage and support Good perineal care of 1st degree laceration Estimate 24-48 hour stay 11/04/18 Routine cares consult today Anticipate discharge home tomorrow 11/05/18 Home today see me in 6 weeks
[2018-11-05] MEDS: Docusate Sodium 100 MG Cap PO PRN (08:49)
== END 2018-11-05 10:50 | disposition home or self-care (01) | DRG 807 ==
LOC: JP.OBCHECK 11:21 → JP.OB 11:45 → OBSVTOIN 21:25 → JP.MS 11-04 01:30
PROVIDERS: ADMIT Advanced Practice Midwife; ATTEND Advanced Practice Midwife
PROC: 10E0XZZ Delivery of Products of Conception, External Approach (ICD-10-PCS; principal; 2018-11-03)
PROC: 10907ZC Drainage of Amniotic Fluid, Therapeutic from Products of Conception, Via Natural or Artificial Opening (ICD-10-PCS; 2018-11-03)
PROC: 0HQ9XZZ Repair Perineum Skin, External Approach (ICD-10-PCS; 2018-11-03)
DX: O24.420 Gestational diabetes mellitus in childbirth, diet controlled (principal); Z37.0 Single live birth; O70.0 First degree perineal laceration during delivery; Z3A.39 39 weeks gestation of pregnancy
CPT/HCPCS: 36415; 59409; 76818; 80305-QW; 81001; 85025; 99211; A9270-GY; J2001; J2590; J7120